=== PATIENT | female | born 1985 | race Caucasian/White ===

== ENCOUNTER 2017-09-08 13:38 | Inpatient (IN) | payer OTHER ==
[2017-09-08] MEDS ORDERED: FENTANYL 100MCG/2ML SOL IV PRN (19:53)
[2017-09-08] MEDS ORDERED: CARBOPROST 250 MCG/ML SOL IM PRN (19:53)
[2017-09-08] MEDS ORDERED: OXYTOCIN 10000 MU/ML SOL IM PRN (19:53)
[2017-09-08] MEDS ORDERED: METHYLERGONOVINE MALEATE 0.2 MG/ML SOL IM PRN (19:53)
[2017-09-08] MEDS ORDERED: MEPIVACAINE HCL 1% MPF 30 ML/VIAL SOL INFIL PRN (19:53)
[2017-09-08] MEDS ORDERED: LACTATED RINGERS 1,000 ML IV PRN (19:53)
[2017-09-08 20:46] LABS: BASOPHILS % (AUTO) 1 % (0-3); EOSINOPHILS % (AUTO) 0 % (0-9); HEMATOCRIT 32 % (35-47); LYMPHOCYTES % (AUTO) 22.5 % (10-50); MEAN CORPUSCULAR HEMOGLOBIN 30.1 pg (27.0-32.0); MEAN CORPUSCULAR VOLUME 86 fL (81-99); MONOCYTES % (AUTO) 6.6 % (0-12)
[2017-09-08] MEDS ORDERED: SODIUM CHLORIDE 0.9% 1000ML 1,000 ML IV ONE (21:23)
[2017-09-08] MEDS ORDERED: DIPHENHYDRAMINE 25 MG CAP PO PRN (21:25)
[2017-09-08 21:30] LABS: ABO O; ANTIBODY SCREEN Negative; RH TYPE Positive
[2017-09-08] MEDS ORDERED: DIPHENHYDRAMINE 25 MG CAP ONE (22:41)
[2017-09-09] MEDS ORDERED: AMPICILLIN 1 GM PDS 2 GM in SODIUM CHLORIDE 0.9% 100 ML 100 ML IV SCH (06:15)
[2017-09-09] MEDS ORDERED: TERBUTALINE SULFATE 1 MG/ML SOL SC PRN (06:17)
[2017-09-09] MEDS ORDERED: OXYTOCIN 10000 MU/ML 20,000 MU in LACTATED RINGERS 1,000 ML IV SCH (06:30)
[2017-09-09] MEDS ORDERED: LACTATED RINGERS 1,000 ML IV SCH (06:30)
[2017-09-09] MEDS ORDERED: LACTATED RINGERS 1,000 ML ONE (06:32)
[2017-09-09] MEDS ORDERED: OXYTOCIN 10000 MU/ML SOL ONE ×2 (06:32→20:52)
[2017-09-09] MEDS ORDERED: AMPICILLIN 1 GM PDS ONE ×4 (06:34→18:50)
[2017-09-09] MEDS: SODIUM CHLORIDE 0.9% FLUSH 10 ML SOL IV SCH ×4 (07:10→20:12)
[2017-09-09] MEDS ORDERED: NALOXONE HYDROCHLORIDE 0.4 MG/ML SOL IV PRN (10:28)
[2017-09-09] MEDS ORDERED: DIPHENHYDRAMINE 50 MG/ML SOL IV PRN (10:28)
[2017-09-09] MEDS ORDERED: EPHEDRINE SULFATE 50 MG/ML SOL IV PRN (10:28)
[2017-09-09] MEDS ORDERED: NALBUPHINE HCL 20 MG/ML SOL IV PRN (10:28)
[2017-09-09] MEDS: LACTATED RINGERS 1,000 ML IV SCH ×4 (10:30→23:30)
[2017-09-09] MEDS ORDERED: ROPIVACAINE HYDROCHLORIDE 5 MG/ML SOL ONE (10:56)
[2017-09-09] MEDS ORDERED: FENTANYL 250 MCG/ 5ML SOL ONE (10:56)
[2017-09-09] MEDS ORDERED: LIDOCAINE HCL 2% MPF 10 ML SOL ONE (10:56)
[2017-09-09] MEDS: AMPICILLIN 1 GM PDS 1 GM in SODIUM CHLORIDE 0.9% 100 ML 100 ML IV SCH ×3 (11:52→19:16)
[2017-09-09] MEDS ORDERED: ONDANSETRON HCL 4 MG/2 ML SOL IV PRN ×2 (16:10→23:23)
[2017-09-09] MEDS ORDERED: ONDANSETRON HCL 4 MG/2 ML SOL ONE ×2 (16:27→20:52)
[2017-09-09] MEDS: SODIUM CHLORIDE 0.9% FLUSH 10 ML SOL IV PRN (16:29)
[2017-09-09] MEDS ORDERED: ACETAMINOPHEN 500 MG 500 MG TAB PO ONE (19:26)
[2017-09-09] MEDS ORDERED: ACETAMINOPHEN 500 MG 500 MG TAB ONE (19:54)
[2017-09-09] MEDS ORDERED: CEFAZOLIN SODIUM 1 GM PDS IVP ONE (20:34)
[2017-09-09] MEDS ORDERED: CITRIC ACID/SODIUM CITRATE SOL PO ONE (20:34)
[2017-09-09] MEDS ORDERED: PHENYLEPHRINE HYDROCHLORIDE 10 MG/ML SOL ONE (20:51)
[2017-09-09] MEDS ORDERED: DEXAMETHASONE 20 MG/5 ML (4 MG/ML SOL) ONE (20:52)
[2017-09-09] MEDS ORDERED: MORPHINE SULFATE 0.5 MG/ML SOL ONE (20:52)
[2017-09-09] MEDS ORDERED: LACTATED RINGERS 1,000 ML with OXYTOCIN 10000 MU/ML 20 MU IV ONE (21:35)
[2017-09-09] MEDS ORDERED: KETOROLAC TROMETHAMINE 30 MG/ML SOL IV PRN (23:23)
[2017-09-09] MEDS ORDERED: DIPHENHYDRAMINE 25 MG CAP PO PRN (23:23)
[2017-09-09] MEDS ORDERED: BENZOCAINE/MENTHOL 1 SPR TOP PRN (23:23)
[2017-09-09] MEDS ORDERED: WITCH HAZEL 1 EA PAD TOP PRN (23:23)
[2017-09-09] MEDS ORDERED: TEMAZEPAM 15MG 15 MG CAP PO PRN (23:23)
[2017-09-09] MEDS ORDERED: FLEET ENEMA PR PRN (23:23)
[2017-09-09] MEDS ORDERED: METHYLERGONOVINE MALEATE 0.2 MG TAB PO PRN (23:23)
[2017-09-09] MEDS ORDERED: BISACODYL 10 MG SUP PR PRN (23:23)
[2017-09-10] MEDS: AMPICILLIN 1 GM PDS 1 GM in SODIUM CHLORIDE 0.9% 100 ML 100 ML IV SCH (00:10)
[2017-09-10] MEDS: SODIUM CHLORIDE 0.9% FLUSH 10 ML SOL IV PRN (00:25)
[2017-09-10] MEDS: LACTATED RINGERS 1,000 ML IV SCH ×3 (01:50→13:00)
[2017-09-10] MEDS ORDERED: CEFAZOLIN (PREMIX) 1 GM 1 GM/50 ML SOL IV SCH (02:36)
[2017-09-10] MEDS: SODIUM CHLORIDE 0.9% FLUSH 10 ML SOL IV SCH ×2 (03:00→12:00)
[2017-09-10] MEDS: APAP/HYDROCODONE 325/5 TAB PO PRN ×3 (08:41→22:15)
[2017-09-10] MEDS: DOCUSATE SODIUM 100 MG SGL PO SCH ×2 (08:41→20:30)
[2017-09-10] MEDS: IBUPROFEN 600 MG TAB PO PRN ×2 (12:42→18:36)
[2017-09-11] MEDS: IBUPROFEN 600 MG TAB PO PRN ×4 (02:35→21:16)
[2017-09-11] MEDS: APAP/HYDROCODONE 325/5 TAB PO PRN ×3 (08:07→20:31)
[2017-09-11] MEDS: DOCUSATE SODIUM 100 MG SGL PO SCH ×2 (08:38→20:31)
[2017-09-11 16:55] VITALS: RESP 20
[2017-09-12] MEDS: APAP/HYDROCODONE 325/5 TAB PO PRN (03:13)
[2017-09-12] MEDS: IBUPROFEN 600 MG TAB PO PRN ×2 (03:13→09:13)
[2017-09-12 06:51] VITALS: BP 125/78; PULSE 86; TEMP 97.4; O2SAT 97
[2017-09-12] MEDS ORDERED: FERROUS GLUCONATE 324 MG TABLET ONE (08:11)
[2017-09-12] MEDS: DOCUSATE SODIUM 100 MG SGL PO SCH (08:12)
[2017-09-12] MEDS ORDERED: FERROUS GLUCONATE 324 MG TAB PO SCH (09:00)
[2017-09-12 09:42] LABS: HEMATOCRIT 27 % (35-47); HEMOGLOBIN 9.1 gm/dl (12.0-15.5); MEAN CORPUSCULAR HEMOGLOBIN 29.9 pg (27.0-32.0); MEAN CORPUSCULAR HGB CONC 33.4 gm/dl (32.0-36.0); MEAN CORPUSCULAR VOLUME 89 fL (81-99)
[2017-09-12 09:43] LABS: BASOPHILS % (AUTO) 0 % (0-3); EOSINOPHILS % (AUTO) 2 % (0-9); LYMPHOCYTES % (AUTO) 27.3 % (10-50); MONOCYTES % (AUTO) 6.3 % (0-12); NEUTROPHILS % (AUTO) 64.3 % (37-80)
== END 2017-09-12 11:22 | disposition home or self-care (01) | DRG 540 ==
LOC: OB 18:46 → OBSVTOIN 18:46 → OB 09-10 03:00
PROVIDERS: ADMIT Family Medicine; ATTEND Family Medicine
PROC: 3E04329 Introduction of Other Anti-infective into Central Vein, Percutaneous Approach (ICD-10-PCS; 2017-09-08)
PROC: 10907ZC Drainage of Amniotic Fluid, Therapeutic from Products of Conception, Via Natural or Artificial Opening (ICD-10-PCS; 2017-09-09)
PROC: 10D00Z1 Extraction of Products of Conception, Low, Open Approach (ICD-10-PCS; principal; 2017-09-09 21:02)
DX: O82 Encounter for cesarean delivery without indication (principal); O99.824 Streptococcus B carrier state complicating childbirth
CPT/HCPCS: 36415; 59025; 85018; 85025; 86850; 86900; 86901; 99070; J0290; J0670; J0690; J1100; J1885; J2274; J2405; J2590; J2795; J3010; A4450; A9270-GY; J2370